=== PATIENT | female | born 1995 | race Caucasian/White ===

== ENCOUNTER 2023-09-17 14:22 | Emergency (ER) | payer BC, SELFPAY ==
[2023-09-17 14:24] VITALS: BP 157/82; PULSE 120; RESP 18; TEMP 36.4; O2SAT 99; BMI 33.1
--- NOTE | 2023-09-17 15:15 | EKG12_ITS ---
Test Reason : Blood Pressure : / mmHG Vent. Rate : 085 BPM Atrial Rate : 085 BPM P-R Int : 144 ms QRS Dur : 086 ms QT Int : 346 ms P-R-T Axes : 047 015 022 degrees QTc Int : 411 ms Normal sinus rhythm with sinus arrhythmia Normal ECG Confirmed by Rambo Morrow ([id number]), news video editor RUSTY LOMBARDO ([id number]) on 09/20/2023 9:05:12 AM Referred By: Rambo Morrow Confirmed By:Rambo Morrow
--- NOTE | 2023-09-17 15:15 | EDS_ITS ---
HPI History of Present Illness Chief Complaint: Abn Labs [facility] Home Medications ?Medication ?Instructions ?Recorded ?Last Taken ?Type NK 09/17/23 Unknown History Allergy/AdvReac Type Severity Reaction Status Date / Time valacyclovir Allergy Severe THROAT Verified 09/17/23 14:24 TIGHTNESS Penicillins Allergy Intermediate Rash Verified 09/17/23 14:24 Social History Smoking Status: Unknown if ever smoked EXAM Physical Exam Const Vital Signs: 09/17/23 14:24 09/17/23 16:23 09/17/23 18:00 Temperature 97.5 F L Temperature Source Temporal Pulse Rate 120 H 92 90 Respiratory Rate 18 18 19 H Blood Pressure 157/82 H 130/72 H 122/74 H Blood Pressure Mean 107 91 90 Pulse Ox 99 98 97 Oxygen Delivery Method Room Air Room Air Room Air MDM [facility] MDM Narrative Medical decision making narrative: HISTORY OF PRESENT ILLNESS: 28-year-old male presents with concern for abnormal calcium level. Notes muscle aches and cramping weakness. Notes her calcium was 10.2 yesterday. REVIEW OF SYSTEMS: Pertinent positives: Fatigue, muscle spasms Pertinent negatives: Chest pain, shortness of breath PHYSICAL EXAM: Nursing triage notes reviewed, Vital signs reviewed Constitutional: please see mdm HENT: MMM Eyes: Pupils equal round and reactive to light, Extraocular muscles intact Neck: No stridor, no JVD, full neck ROM Lungs: Clear to auscultation, No wheezing or rales. No increased work of breathing, no conversational dyspnea, no accessory muscle use, no nasal flaring. No respiratory distress noted Heart: Regular rate and rhythm, No murmurs, No rubs and No gallops, 2+ distal pulses (radial, femoral, posterior tibial) in all extremities Abdomen: Soft, there is no tenderness, rigidity, rebound or guarding, no obvious peritoneal signs, no palpable pulsatile abdominal masses, no auscultated abdominal bruit : No CVAT Extremities: No edema Neuro: No focal neurological deficits, cranial nerves II through XII intact, 5/5 strength in all extremities. Intact sensation to light touch in all extremities, 2+ reflexes bilateral patella tendons. Normal gait. No ataxia. Skin: No rash or lesions noted MEDICAL DECISION MAKING: Chief Complaint: Concern for calcium abnormality External records reviewed: Reviewed [employer] and [facility] [employer]. BMP from yesterday shows a calcium of 12.2. CT scan abdomen pelvis yesterday shows no hydronephrosis, no definitive hydroureter, Factors affecting care: History of parathyroid abnormality per patient report. Per chart review history of hyperparathyroidism, nephrolithiasis, GERD, gallstones Social determinants of health: none History obtained from others: none Consults: none MDM Narrative: Patient was initially hypertensive with a blood pressure 137/82, tachycardic with pulse 120, otherwise afebrile and nontoxic-appearing I considered the following differential diagnosis: Arrhythmia, electrolyte disturbance I obtained a broad lab workup to further elucidate etiology of patient complaint. I obtained EKG without arrhythmia or signs of QT shortening. ALL IMAGES (IF OBTAINED) HAVE BEEN PERSONALLY REVIEWED AND INTERPRETED BY MYSELF. EKG with normal sinus rhythm, normal axis, normal intervals, QT 411, no STEMI, no signs of severe hypercalcemia BMP without significant electrolyte disturbances, noted very mild hypercalcemia 10.7. iCal pending is a send Urine is negative CBC without leukocytosis, severe anemia, no thrombocytopenia. The synthesis of the patient history, physical exam and labs suggest likely hypercalcemia causing the patient's muscle spasms and fatigue. Potassium was 10.7 today. She was given 2 L of fluid. He should improve her serum potassium. Ionized calcium is pending is a send out lab. Arranged endocrinology follow-up as an outpatient. The patient and/or family, caregivers express understanding. The patient and/or family, caregivers agrees with the plan. Shared decision making: I will have a discussion with the patient and or visitors regarding risk/benefits of further testing or admission. They will be made aware of of the risk/benefits inherent in this decision they will be given the opportunity to voice understanding. Total critical care time today provided was at least 0 minutes. This excludes separately billable procedures. Critical care time (if documented) is secondary to the patient having high probability of clinically significant/life threatening deterioration in the patient's condition which required my urgent intervention. Impression: 1. Hyperparathyroidism 2. Hypercalcemia 3. Muscle spasms Dispo: Discharge home This note was generated with [employer] dictation software. It may contain incorrect words, spelling, and punctuation that were not noted in review of the chart prior to signing. Lab Data Labs: Laboratory Results - last 24 hr 09/17/23 09/17/23 15:30 16:16 WBC 8.7 RBC 4.84 Hgb 14.8 Hct 43.5 MCV 89.9 MCH 30.6 MCHC 34.0 RDW Std Deviation 42.2 RDW Coeff of [place] 12.9 Plt Count 267 MPV 10.7 Immature Gran % (Auto) 0.500 Neut % (Auto) 71.1 H Lymph % (Auto) 20.0 [place] % (Auto) 5.7 Eos % (Auto) 2.0 Baso % (Auto) 0.7 Absolute Neuts (auto) 6.2 Absolute Lymphs (auto) 1.74 Nucleated RBC % 0 Sodium 137 Potassium 4.1 Chloride 107 Carbon Dioxide 23.0 Anion Gap 7 BUN 16 Creatinine 1.05 H Estim Creat Clear Calc 84.66 Est GFR (MDRD) Af Amer 79 Est GFR (MDRD) Non-Af 66 BUN/Creatinine Ratio 15.2 Glucose 91 Calcium 10.7 H Urine Test Negative Discharge Plan Triage Chief Complaint: Abn Labs ED Provider: Elvin Braswell Dx/Rx/DC Orders Prescriptions: No Action NK Primary Care Provider: Mack Wild Referrals: Mack Wild MD [Primary Care Provider] - Print Language: Italian
--- NOTE | 2023-09-17 15:17 | NURSING ---
NO OLD EKGS
[2023-09-17] MEDS: 0.9% Normal Saline (1000mL) 1,000 ML 999 ML IV ×2 (15:44→17:22)
[2023-09-17 15:53] LABS: Absolute Lymphocyte Count 1.74 X10^3/uL (0.83-4.51); Absolute Neutrophil Count 6.2 X10^3/uL (2.0-7.7); Basophil# 0.06 X10^3/uL; Basophil% 0.7 % (0-1); Eosinophil# 0.17 X10^3/uL; Hematocrit 43.5 % (37-47); Hemoglobin 14.8 g/dL (12.0-15.0); Lymphocyte # 1.74 X10^3/ul (0.83-4.51); Mean Corpuscular Hgb 30.6 pg (27.0-32.0); Mean Corpuscular Volume 89.9 fL (81-99); Mean Platelet Vol. 10.7 fl (6.2-12.0); Monocyte% 5.7 % (0-10); NRBC Flagged by Analyzer 0 % (0-5); Neutrophil # 6.19 X10^3/uL (2.7-7.7); Neutrophil % 71.1 % (47-70); Platelet Count 267 K/mm3 (150-450); RBC Distribution Width CV 12.9 % (11.6-14.6); RBC Distribution Width SD 42.2 fl (35.1-43.9); Red Blood Count 4.84 M/mm3 (4.2-5.4); White Blood Count 8.7 K/mm3 (4.4-11.0)
[2023-09-17 16:06] LABS: Anion Gap 7 (5-15); BUN 16 mg/dL (7-18); BUN/Creat Ratio 15.2 RATIO (10-20); Calcium,Total 10.7 mg/dL (8.5-10.1); Chloride 107 mmol/L (98-107); Creatinine, Serum 1.05 mg/dL (0.55-1.02); EST Glomerular Filtration Rate 66 mL/min (>60); Est Glom Filt Rate - Afr Amer 79 mL/min (>60); Estimated Creatinine Clearance 84.66 ml/min; Glucose 91 mg/dL (74-106); Potassium 4.1 mmol/L (3.5-5.1); Sodium Level 137 mmol/L (136-145)
[2023-09-17 16:23] VITALS: BP 130/72; PULSE 92; RESP 18; O2SAT 98
[2023-09-17 16:29] LABS: Internal QC Validated? YES +Cl - CLEAR BKGD
[2023-09-17 16:30] LABS: Pregnancy, Urine Negative Negative; Record Kit Lot#,Urine Preg 772476
[2023-09-17 16:44] LABS: Ionized Calcium Order ORDER TUBE
[2023-09-17 18:00] VITALS: BP 122/74; PULSE 90; RESP 19; O2SAT 97
[2023-09-17 19:27] VITALS: BP 127/75; PULSE 86; RESP 16; TEMP 36.7; O2SAT 98
[2023-09-18 14:28] LABS: Ionized Calcium 5.26 mg/dL (4.36-5.20)
== END 2023-09-17 19:30 | disposition home or self-care (01) ==
PROVIDERS: Emergency Provider Emergency Medicine; PCP Family Medicine; Visit Provider Emergency Medicine
DX: E21.3 Hyperparathyroidism, unspecified (principal); E83.52 Hypercalcemia; M62.838 Other muscle spasm
CPT/HCPCS: 80048; 81025; 82330; 85025; 93005; 96360; 96361; 99284; J7030; A4216